=== PATIENT | male | born 1950 | race American Indian/Alaskan Native ===

== ENCOUNTER 2017-07-26 08:01 | Outpatient (CLI) | payer MEDICARE, OTHER | END 2017-07-26 08:02 | disposition home or self-care (01) | LOC: VAS 08:01 | PROVIDERS: ATTEND Family Medicine | DX: I65.23 Occlusion and stenosis of bilateral carotid arteries (principal); J70.9 Respiratory conditions due to unspecified external agent | CPT/HCPCS: 93880; 93930 ==